=== PATIENT | female | born 1955 | race Two or more races ===

== ENCOUNTER 2024-01-09 12:03 | Emergency (ER) | payer OTHER ==
[~2024-01-09] VITALS: Ht 157.5 cm; Wt 63.5 kg
[2024-01-09] MEDS ORDERED: METFORMIN HCL500 MG (12:56)
[2024-01-09] MEDS ORDERED: HUMALOG100 UNIT/2 (12:56)
[2024-01-09] MEDS ORDERED: KETOROLAC TROMETHAMINE 30 MG VIAL IM STA (13:53)
== END 2024-01-09 16:22 | disposition home or self-care (01) ==
LOC: ER 12:03
DX: M25.562 Pain in left knee (principal); E11.9 Type 2 diabetes mellitus without complications; Z79.4 Long term (current) use of insulin; Z79.84 Long term (current) use of oral hypoglycemic drugs
CPT/HCPCS: 73560; 96372; 99283; J1885